=== PATIENT | female | born 1940 | race Caucasian/White ===

== ENCOUNTER 2020-10-12 09:22 | Outpatient (CLI) | payer OTHER | END 2020-10-12 09:53 | disposition home or self-care (01) | LOC: EDBD 09:22 → TOM 09:22 | PROVIDERS: ATTEND Internal Medicine Gastroenterology | DX: K57.30 Diverticulosis of large intestine without perforation or abscess without bleeding (principal); K59.09 Other constipation; K56.600 Partial intestinal obstruction, unspecified as to cause ==